=== PATIENT | male | born 1995 | race Caucasian/White ===

== ENCOUNTER 2017-02-23 08:22 | Emergency (ER) | payer SELFPAY ==
[2017-02-23] MEDS ORDERED: HYDROcodone/Acetaminophen 5/325 mg Tablet ONE (09:09)
[2017-02-23] MEDS ORDERED: Ibuprofen 800 MG TAB ONE (09:10)
[2017-02-23] MEDS ORDERED: AMOXicillin 250 MG CAP ONE (09:13)
== END 2017-02-23 09:25 | disposition home or self-care (01) ==
LOC: SCSER 08:22
DX: K04.7 Periapical abscess without sinus (principal); F17.210 Nicotine dependence, cigarettes, uncomplicated
CPT/HCPCS: 99283